=== PATIENT | female | born 1985 | race Caucasian/White ===

== ENCOUNTER 2024-07-01 10:53 | Emergency (ER) | payer OTHER ==
[2024-07-01 12:06] LABS: #Basophils 0.04 10x3/uL (0.0-0.2); %Basophils 0.8 % (0.0-1.0); %Eosinophils 9.8 % (0.0-10.0); %Lymphocytes 24.9 % (21.0-51.0); %Monocytes 11.1 % (0.0-10.0); %Neutrophils 53.2 % (42.0-75.0); Hematocrit 40.1 % (36.0-47.0); Hemoglobin 13.5 g/dL (12.0-16.0); Mean Corpuscular HGB CONC 33.7 g/dL (32.0-36.0); Mean Corpuscular Hemoglobin 30.5 pg (27.0-31.0); Mean Corpuscular Volume 90.5 fL (78.0-98.0); Mean Platelet Volume 11.2 fL (7.4-10.4); Platelet Count 275 10x3/uL (130-400); RBC Distribution Width 13.2 % (11.5-14.5); Red Blood Cell (RBC) Count 4.43 mill/uL (4.20-5.40)
[2024-07-01 12:20] LABS: ALT (SGPT) 18 U/L (8-55); AST (SGOT) 16 U/L (5-34); Albumin 3.6 g/dL (3.5-5.0); Alkaline Phosphatase 68 U/L (40-110); Anion Gap 13 mmol/L (10-20); BUN (Urea Nitrogen) 7 mg/dL (7.0-18.7); Bilirubin, Total 0.3 mg/dL (0.2-1.2); Calc. Creatinine Clearance 0 mL/min (70-130); Carbon Dioxide 22 mmol/L (22-29); Chloride 110 mmol/L (98-107); Estimated GFR 102; Globulin 3.6 g/dL (2.4-3.5); Glucose 92 mg/dL (70-105); Potassium 3.5 mmol/L (3.5-5.1); Protein, Total 7.2 g/dL (6.0-8.3); Sodium 141 mmol/L (136-145)
[2024-07-01] MEDS ORDERED: hydrALAZINE 10 MG TAB ONE (12:51)
== END 2024-07-01 12:57 | disposition home or self-care (01) ==
LOC: ERS 10:53
DX: L29.9 Pruritus, unspecified (principal); L03.90 Cellulitis, unspecified; E11.9 Type 2 diabetes mellitus without complications
CPT/HCPCS: 80053; 85025; 99282